=== PATIENT | female | born 1950 | race Hispanic/Latino ===

== ENCOUNTER 2021-03-25 08:45 | Emergency (ER) | payer MEDICARE | END 2021-03-25 09:43 | disposition home or self-care (01) | LOC: NAV ERS 08:45 | DX: H81.10 Benign paroxysmal vertigo, unspecified ear (principal) | CPT/HCPCS: 99283 ==

== ENCOUNTER 2024-07-23 07:46 | Emergency (ER) | payer MEDICARE, OTHER ==
[2024-07-23 08:22] LABS: #Eosinphils 0.1 thou/uL (0.0-0.7); #Monocytes 0.6 thou/uL (0.11-0.59); #Neutrophils 3.5 thou/uL (1.40-6.50); %Basophils 0.6 % (0.0-1.0); %Eosinophils 1.1 % (0.0-10.0); %Lymphocytes 32.4 % (21.0-51.0); %Monocytes 10.1 % (0.0-10.0); %Neutrophils 55.8 % (42.0-75.0); Hematocrit 46.6 % (36.0-47.0); Hemoglobin 14.5 g/dL (12.0-16.0); Mean Corpuscular HGB CONC 31.1 g/dL (32.0-36.0); Mean Corpuscular Hemoglobin 29.3 pg (27.0-31.0); Mean Corpuscular Volume 94.2 fl (78.0-98.0); Mean Platelet Volume 9.4 fL (7.4-10.4); Platelet Count 228 10x3/uL (130-400); RBC Distribution Width 12.6 % (11.5-14.5); Red Blood Cell (RBC) Count 4.94 mill/uL (4.20-5.40); White Blood Cell (WBC) Count 6.2 10x3/uL (4.8-10.8)
[2024-07-23] MEDS ORDERED: Sodium Chloride 0.9% 500 ML ONE (08:23)
[2024-07-23 08:32] LABS: Prothrombin Time 13.4 sec (12.0-14.7)
[2024-07-23] MEDS ORDERED: ANTIVENIN,CROTALIDAE (ANAVIP) 1 EACH VIAL ONE (08:33)
[2024-07-23 08:34] LABS: Anion Gap 16 mmol/L (10-20); BUN (Urea Nitrogen) 14 mg/dL (9.8-20.1); CK (CPK) 64 U/L (29-168); Calc. Creatinine Clearance 0 mL/min (70-130); Calcium 9.5 mg/dL (7.8-10.44); Carbon Dioxide 25 mmol/L (23-31); Chloride 107 mmol/L (98-107); Estimated GFR 81; Glucose 96 mg/dL (83-110); Potassium 3.7 mmol/L (3.5-5.1); Sodium 144 mmol/L (136-145)
[2024-07-23] MEDS ORDERED: Morphine 4 MG/ML VIAL ONE (08:39)
[2024-07-23] MEDS ORDERED: diphenhydrAMINE 50 MG/ML VIAL ONE (08:39)
[2024-07-23] MEDS ORDERED: Ondansetron PF 4 MG/2 ML Vial ONE (08:39)
[2024-07-23 10:31] LABS: Bilirubin Negative (Negative); Blood, Urine Trace (Negative); Clarity Clear (Clear); Glucose, Urine (Dipstick) Negative (Negative); Ketone, Urine Negative (Negative); Leukocyte Trace (Negative); Nitrite Negative (Negative); Protein, Urine (Dipstick) Negative (Neg-Trace); Specific Gravity, Urine 1.015 (1.005-1.030); Urobilinogen 0.2 mg/dL (Less than 2)
[2024-07-23 10:38] LABS: CAUTI Indications for Culture Dysuria,urgency,freq; RBC/HPF 0-3 HPF (0-3); WBC/HPF 0-3 HPF (0-3)
[2024-07-23 10:39] LABS: Bacteria/HPF Rare-Few HPF (None Seen); Squamous Epithelial 0-3 HPF (0-3); Urine Culture Reflex No No
== END 2024-07-23 10:40 | disposition short-term general hospital (02) ==
LOC: NAV ERS 07:46
DX: T63.001A Toxic effect of unspecified snake venom, accidental (unintentional), initial encounter (principal); M25.441 Effusion, right hand; F17.210 Nicotine dependence, cigarettes, uncomplicated
CPT/HCPCS: 80048; 81001; 82550; 85025; 85610; 93005; 94760; 96365; 96375; J0841; J1200; J2272; J2405; J7030